=== PATIENT | female | born 1960 | race Caucasian/White ===

== ENCOUNTER 2020-07-27 12:27 | Emergency (ER) | payer MEDICAID ==
[~2020-07-27] VITALS: Ht 160 cm; Wt 51.0 kg
[2020-07-27 12:43] VITALS: BP 133/87
[2020-07-27] MEDS ORDERED: LORazepam 1 MG tablet PO ONE (13:10)
[2020-07-27] MEDS ORDERED: LORA-269 PO (13:24)
== END 2020-07-27 13:42 | disposition home or self-care (01) ==
LOC: ER 12:27
DX: F41.9 Anxiety disorder, unspecified (principal); Z60.2 Problems related to living alone; Z88.5 Allergy status to narcotic agent; Z79.899 Other long term (current) drug therapy; Y08.89XA Assault by other specified means, initial encounter; Y93.89 Activity, other specified; Y92.89 Other specified places as the place of occurrence of the external cause; Y99.8 Other external cause status
CPT/HCPCS: 99283

== ENCOUNTER 2020-08-19 19:20 | Inpatient (IN) | payer MEDICAID ==
[~2020-08-19] VITALS: Ht 162.6 cm; Wt 50.0 kg
[~2020-08-19 19:20] MED LIST: LORA-269 PO
[2020-08-19 20:26] LABS: BASOPHILS # (AUTO) 0.1 X10'3 (0-0.2); BASOPHILS % (AUTO) 0.8 % (0-1); EOSINOPHILS % (AUTO) 0.4 % (0-6); HEMATOCRIT 36.8 % (35.0-45.0); HEMOGLOBIN 12.9 g/dl (12.0-16.0); LYMPHOCYTES % (AUTO) 14.1 % (21-51); MEAN CORPUSCULAR HEMOGLOBIN 34.1 PG (27.0-31.0); MEAN CORPUSCULAR HGB CONC 35.1 g/dL (33.0-36.5); MEAN CORPUSCULAR VOLUME 97.2 FL (78-98); MEAN PLATELET VOLUME 6.6 FL (7.4-10.4); MONOCYTES # (AUTO) 0.8 X10'3 (0-0.9); NEUTROPHILS # (AUTO) 5.1 X10'3 (1.8-7.7); NEUTROPHILS % (AUTO) 73.7 % (42-75); PLATELET COUNT 345 X10'3 (140-440); RED BLOOD COUNT 3.79 X10'6 (4.20-5.60); RED CELL DISTRIBUTION WIDTH 14.3 % (11.5-14.5); WHITE BLOOD COUNT 6.9 X10'3 (4.5-11.0)
[2020-08-19 20:47] LABS: ALANINE AMINOTRANSFERASE 81 U/L (12-78); ALBUMIN 4.1 G/DL (3.4-5.0); ALBUMIN/GLOBULIN RATIO 1.4 (1.1-1.5); ALKALINE PHOSPHATASE 64 IU/L (46-116); ANION GAP 10 (8-16); ASPARTATE AMINO TRANSFERASE 76 U/L (10-37); BILIRUBIN,TOTAL 0.6 MG/DL (0.1-1.0); BLOOD UREA NITROGEN 5 MG/DL (7-18); BUN/CREATININE RATIO 7.5 (6.6-38.0); CALCIUM 8.8 MG/DL (8.5-10.1); CHLORIDE 83 MMOL/L (99-107); CREATININE 0.67 MG/DL (0.40-0.90); ETHANOL < 0.010 GM/DL (0.0-0.010); GLUCOSE 85 MG/DL (70-104); TOTAL CARBON DIOXIDE 26.4 MMOL/L (24-32); eGFR 89 ML/MIN
[2020-08-19 20:50] LABS: POTASSIUM 2.9 MMOL/L (3.5-5.1); SODIUM 119 MMOL/L (135-145)
[2020-08-19 21:03] LABS: CLARITY,URINE CLEAR (Clear); COLOR,URINE YELLOW (Yellow); GLUCOSE, URINE NEGATIVE (Neg); KETONES,URINE NEGATIVE (Neg); LEUKOCYTE ESTERASE ,URINE NEGATIVE (Neg); NITRITES, URINE NEGATIVE (Neg); OCCULT BLOOD,URINE NEGATIVE (Neg); PROTEIN,URINE NEGATIVE (Neg); UROBILINOGEN,URINE 0.2 E.U/dL (0.2-1.0)
[2020-08-19 21:13] LABS: UA COLLECTION TYPE NON-SPECIFIED
[2020-08-19 21:18] LABS: URINE AMPHETAMINE SCREEN NEGATIVE (Neg); URINE BARBITUATE SCREEN NEGATIVE (Neg); URINE BENZODIAZEPINES SCREEN NEGATIVE (Neg); URINE CANNABINOID SCREEN NEGATIVE (Neg); URINE COCAINE SCREEN NEGATIVE (Neg); URINE METHADONE SCREEN NEGATIVE (Neg); URINE OPIATE SCREEN NEGATIVE (Neg); URINE PHENCYCLIDINE SCREEN NEGATIVE (Neg)
[2020-08-19] MEDS ORDERED: LORazepam 1 MG tablet PO ONE (21:25)
[2020-08-19] MEDS ORDERED: haloperidol 5mg tablet PO ONE (21:25)
[2020-08-19] MEDS ORDERED: diphenhydrAMINE 25mg capsule PO ONE (21:25)
[2020-08-19] MEDS ORDERED: magnesium 4gm in 100ml NS 100 ML IV PRN (21:40)
[2020-08-19] MEDS ORDERED: magnesium 2GM in 50ml NS 50 ML IV PRN (21:40)
[2020-08-19] MEDS ORDERED: potassium CL 10mEq/100ml bag 100 ML IV PRN ×2 (21:40)
[2020-08-19] MEDS ORDERED: potassium Cl 20 mEq SR tablet PO PRN (21:40)
[2020-08-19] MEDS ORDERED: magnesium Cl slow-release 64mg tablet PO PRN (21:40)
[2020-08-19] MEDS ORDERED: ondansetron/PF 4mg/2ml inj IV PRN (21:40)
[2020-08-19] MEDS ORDERED: potassium Cl 20 mEq SR tablet PO STA (22:02)
[2020-08-19] MEDS ORDERED: normal saline 1000ml 1,000 ML IV ONE (22:05)
[2020-08-19] MEDS: normal saline 1000ml 1,000 ML IV SCH (23:45)
--- NOTE | 2020-08-19 23:52 | NUR ---
tried to complete pt med req. Pt was unable to verify any home meds pt states she gets her meds at [facility]. [facility] has no external med car pick up driver for pt. is aware
[2020-08-20] VITALS (8 sets, daily range): BP systolic 89–153; BP diastolic 51–93
--- NOTE | 2020-08-20 04:09 | NUR ---
received report from Leidy CANTRELL [facility], had opportunity to ask questions, awaiting arrival to floor.
--- NOTE | 2020-08-20 04:15 | NUR ---
pt arrived to floor with all belongings, pt oriented to floor, tele attached, VS stable, staff in room.
[2020-08-20] MEDS: normal saline 1000ml 1,000 ML IV SCH ×2 (05:05→17:40)
[2020-08-20 06:08] LABS: BASOPHILS % (AUTO) 0.4 % (0-1); EOSINOPHILS # (AUTO) 0.1 X10'3 (0-0.9); EOSINOPHILS % (AUTO) 1.3 % (0-6); HEMATOCRIT 35.5 % (35.0-45.0); HEMOGLOBIN 12.1 g/dl (12.0-16.0); LYMPHOCYTES # (AUTO) 1.1 X10'3 (1.1-4.8); LYMPHOCYTES % (AUTO) 17.9 % (21-51); MEAN CORPUSCULAR HEMOGLOBIN 33.5 PG (27.0-31.0); MEAN CORPUSCULAR HGB CONC 34.2 g/dL (33.0-36.5); MEAN CORPUSCULAR VOLUME 97.9 FL (78-98); MEAN PLATELET VOLUME 7.1 FL (7.4-10.4); MONOCYTES # (AUTO) 0.7 X10'3 (0-0.9); MONOCYTES % (AUTO) 11.6 % (2-12); NEUTROPHILS # (AUTO) 4.1 X10'3 (1.8-7.7); NEUTROPHILS % (AUTO) 68.8 % (42-75); PLATELET COUNT 338 X10'3 (140-440); RED BLOOD COUNT 3.63 X10'6 (4.20-5.60); RED CELL DISTRIBUTION WIDTH 14.5 % (11.5-14.5)
[2020-08-20 06:21] LABS: ALBUMIN 3.1 G/DL (3.4-5.0); ANION GAP 8 (8-16); BLOOD UREA NITROGEN 4 MG/DL (7-18); BUN/CREATININE RATIO 6.7 (6.6-38.0); CALCIUM 8.5 MG/DL (8.5-10.1); CHLORIDE 100 MMOL/L (99-107); GLUCOSE 71 MG/DL (70-104); MAGNESIUM 1.9 MG/DL (1.5-2.4); POTASSIUM 3.3 MMOL/L (3.5-5.1); SODIUM 134 MMOL/L (135-145); TOTAL CARBON DIOXIDE 25.8 MMOL/L (24-32); eGFR > 90 ML/MIN
--- NOTE | 2020-08-20 06:27 | NUR ---
Problems reprioritized. Patient report given, questions answered & plan of care reviewed with Colette CANTRELL.
[2020-08-20] MEDS: potassium Cl 20 mEq SR tablet PO PRN ×3 (08:40→19:36)
[2020-08-20] MEDS: K and/or MAG REPLACEMENT MC SCH ×2 (08:41→19:34)
--- NOTE | 2020-08-20 15:45 | NUR ---
PAGER ID: [phone] MESSAGE: [phone] Jordin Grossman C/o difficulty breathing. Episodic dry spastic cough observed. Satting well on room air. States she takes singulair and Sudafed. Pls. advise. Colette [phone]
[2020-08-20] MEDS: LORazepam 1 MG tablet PO PRN (16:06)
--- NOTE | 2020-08-20 18:15 | NUR ---
Patient in room PCU 3012. I have received report from Colette CANTRELL and had the opportunity to ask questions and assume patient care.
--- NOTE | 2020-08-20 18:41 | NUR ---
Problems reprioritized. Patient report given, questions answered & plan of care reviewed with Pennie CANTRELL.
[2020-08-21] MEDS: LORazepam 1 MG tablet PO PRN ×3 (00:40→16:51)
[2020-08-21] MEDS: normal saline 1000ml 1,000 ML IV SCH ×2 (00:43→13:40)
[2020-08-21 02:00] VITALS: BP 153/84
[2020-08-21 05:16] LABS: ALBUMIN 3.1 G/DL (3.4-5.0); ANION GAP 9 (8-16); BLOOD UREA NITROGEN 4 MG/DL (7-18); CALCIUM 8.4 MG/DL (8.5-10.1); CHLORIDE 103 MMOL/L (99-107); GLUCOSE 90 MG/DL (70-104); MAGNESIUM 1.8 MG/DL (1.5-2.4); POTASSIUM 3.2 MMOL/L (3.5-5.1); SODIUM 135 MMOL/L (135-145); TOTAL CARBON DIOXIDE 22.7 MMOL/L (24-32); eGFR > 90 ML/MIN
[2020-08-21 05:21] LABS: BASOPHILS % (AUTO) 0.9 % (0-1); EOSINOPHILS # (AUTO) 0.1 X10'3 (0-0.9); EOSINOPHILS % (AUTO) 1.9 % (0-6); HEMATOCRIT 33.7 % (35.0-45.0); HEMOGLOBIN 11.4 g/dl (12.0-16.0); LYMPHOCYTES # (AUTO) 1.2 X10'3 (1.1-4.8); LYMPHOCYTES % (AUTO) 25.4 % (21-51); MEAN CORPUSCULAR HEMOGLOBIN 33.9 PG (27.0-31.0); MEAN CORPUSCULAR VOLUME 99.8 FL (78-98); MEAN PLATELET VOLUME 7.2 FL (7.4-10.4); MONOCYTES # (AUTO) 0.6 X10'3 (0-0.9); MONOCYTES % (AUTO) 12.6 % (2-12); NEUTROPHILS # (AUTO) 2.8 X10'3 (1.8-7.7); NEUTROPHILS % (AUTO) 59.2 % (42-75); PLATELET COUNT 298 X10'3 (140-440); RED BLOOD COUNT 3.38 X10'6 (4.20-5.60); RED CELL DISTRIBUTION WIDTH 14.5 % (11.5-14.5); WHITE BLOOD COUNT 4.7 X10'3 (4.5-11.0)
--- NOTE | 2020-08-21 06:10 | NUR ---
Patient in room PCU 3012. I have received report from Pennie CANTRELL and had the opportunity to ask questions and assume patient care.
--- NOTE | 2020-08-21 06:36 | NUR ---
Problems reprioritized. Patient report given, questions answered & plan of care reviewed with Sarah CANTRELL.
--- NOTE | 2020-08-21 06:39 | NUR ---
Problems reprioritized. Patient report given, questions answered & plan of care reviewed with Sarah CANTRELL.
[2020-08-21 07:15] VITALS: BP 127/70
[2020-08-21] MEDS: K and/or MAG REPLACEMENT MC SCH ×2 (08:47→20:56)
[2020-08-21] MEDS: potassium Cl 20 mEq SR tablet PO PRN ×3 (08:50→20:53)
[2020-08-21 11:00] VITALS: BP 133/81
[2020-08-21] MEDS ORDERED: iohexol 350MG/ML 100ml bottle IV ONE (11:58)
[2020-08-21 15:00] VITALS: BP 130/83
--- NOTE | 2020-08-21 17:28 | NUR ---
patient up and about with sitter seen by DR andujar CTA ordered and done see report. patient demonstrated flights of thought manyn times when asked questions. continues on 1798.
[2020-08-21 18:00] VITALS: BP 136/78
--- NOTE | 2020-08-21 18:00 | NUR ---
Patient in room U 3012. I have received report from ÓSCAR Smith and had the opportunity to ask questions and assume patient care. Patient resting in bed. No signs of distress. Safety measures in place, bed in low and locked position. Call light and personal items within reach. Will continue to monitor throughout shift.
--- NOTE | 2020-08-21 18:31 | NUR ---
Problems reprioritized. Patient report given, questions answered & plan of care reviewed with Kayla CANTRELL.
--- NOTE | 2020-08-21 18:46 | NUR ---
Patient in room PCU 3012. I have received report from Sarah CANTRELL and had the opportunity to ask questions and assume patient care with Cristiano CANTRELL.
[2020-08-21] MEDS: acetaminophen 325mg tablet PO PRN (20:53)
[2020-08-21 22:00] VITALS: BP 136/87
[2020-08-22] MEDS: normal saline 1000ml 1,000 ML IV SCH ×2 (01:28→11:24)
[2020-08-22] MEDS: LORazepam 1 MG tablet PO PRN (01:54)
[2020-08-22 02:00] VITALS: BP 139/75
[2020-08-22 05:20] LABS: BASOPHILS % (AUTO) 0.7 % (0-1); EOSINOPHILS # (AUTO) 0.1 X10'3 (0-0.9); EOSINOPHILS % (AUTO) 1.9 % (0-6); HEMATOCRIT 33.4 % (35.0-45.0); HEMOGLOBIN 11.2 g/dl (12.0-16.0); LYMPHOCYTES # (AUTO) 1.1 X10'3 (1.1-4.8); LYMPHOCYTES % (AUTO) 25.5 % (21-51); MEAN CORPUSCULAR HEMOGLOBIN 33.4 PG (27.0-31.0); MEAN CORPUSCULAR HGB CONC 33.6 g/dL (33.0-36.5); MEAN CORPUSCULAR VOLUME 99.5 FL (78-98); MEAN PLATELET VOLUME 7.3 FL (7.4-10.4); MONOCYTES # (AUTO) 0.5 X10'3 (0-0.9); MONOCYTES % (AUTO) 12.3 % (2-12); NEUTROPHILS # (AUTO) 2.7 X10'3 (1.8-7.7); NEUTROPHILS % (AUTO) 59.6 % (42-75); PLATELET COUNT 304 X10'3 (140-440); RED BLOOD COUNT 3.35 X10'6 (4.20-5.60); RED CELL DISTRIBUTION WIDTH 14.5 % (11.5-14.5); WHITE BLOOD COUNT 4.5 X10'3 (4.5-11.0)
[2020-08-22 05:53] LABS: ANION GAP 9 (8-16); BLOOD UREA NITROGEN 3 MG/DL (7-18); BUN/CREATININE RATIO 5.5 (6.6-38.0); CALCIUM 7.9 MG/DL (8.5-10.1); CHLORIDE 102 MMOL/L (99-107); CREATININE 0.55 MG/DL (0.40-0.90); GLUCOSE 112 MG/DL (70-104); MAGNESIUM 1.7 MG/DL (1.5-2.4); SODIUM 134 MMOL/L (135-145); TOTAL CARBON DIOXIDE 23.1 MMOL/L (24-32); eGFR > 90 ML/MIN
[2020-08-22 06:00] VITALS: BP 131/80
--- NOTE | 2020-08-22 06:06 | NUR ---
[place] documentation: I have reviewed and agree with all interventions, assessments performed and documented by Cristiano CANTRELL.[place] Medication Administration: For this medication-pass time frame, all medication were reviewed, dispensed, administered and documented per hospital policy by Cristiano CANTRELL with Kayla CANTRELL.
--- NOTE | 2020-08-22 06:29 | NUR ---
Problems reprioritized. Patient report given, questions answered & plan of care reviewed with Sheila RN.
[2020-08-22] MEDS: K and/or MAG REPLACEMENT MC SCH ×2 (08:00→20:00)
[2020-08-22] MEDS ORDERED: benzocaine/menthol oral lozeng 1 EACH BOX MM PRN (10:55)
[2020-08-22 11:00] VITALS: BP 92/68
[2020-08-22] MEDS: olanzapine 10mg tablet PO SCH (11:23)
[2020-08-22] MEDS: montelukast 10mg tablet PO SCH (11:23)
[2020-08-22 15:00] VITALS: BP 159/92
--- NOTE | 2020-08-22 16:30 | NUR ---
Notified Dr. Kurtz that per [facility], pt needs to be on a 5150 hold for "danger to others."
[2020-08-22] MEDS ORDERED: thiamine 100mg/ml 2ml inj. IV ONE (16:55)
[2020-08-22] MEDS: thiamine 100mg tablet PO SCH (17:33)
[2020-08-22 18:00] VITALS: BP 140/77
--- NOTE | 2020-08-22 18:32 | NUR ---
Problems reprioritized. Patient report given, questions answered & plan of care reviewed with ÓSCAR Rhodes.
[2020-08-22] MEDS ORDERED: traZODone 50mg tablet PO SCH (20:00)
[2020-08-22] MEDS: acetaminophen 325mg tablet PO PRN (21:11)
[2020-08-22 22:00] VITALS: BP 137/77
--- NOTE | 2020-08-22 22:05 | NUR ---
Spoke with Gissell [place], gave nurse to nurse update on patient. Will continue to monitor.
[2020-08-23] MEDS: acetaminophen 325mg tablet PO PRN ×2 (03:30→15:45)
[2020-08-23 06:29] LABS: BASOPHILS # (AUTO) 0.1 X10'3 (0-0.2); EOSINOPHILS # (AUTO) 0.1 X10'3 (0-0.9); EOSINOPHILS % (AUTO) 1.3 % (0-6); HEMATOCRIT 38.2 % (35.0-45.0); HEMOGLOBIN 12.9 g/dl (12.0-16.0); LYMPHOCYTES # (AUTO) 1.4 X10'3 (1.1-4.8); LYMPHOCYTES % (AUTO) 23.7 % (21-51); MEAN CORPUSCULAR HEMOGLOBIN 33.8 PG (27.0-31.0); MEAN CORPUSCULAR HGB CONC 33.7 g/dL (33.0-36.5); MEAN CORPUSCULAR VOLUME 100.2 FL (78-98); MEAN PLATELET VOLUME 7.4 FL (7.4-10.4); MONOCYTES # (AUTO) 0.7 X10'3 (0-0.9); MONOCYTES % (AUTO) 12.6 % (2-12); NEUTROPHILS # (AUTO) 3.6 X10'3 (1.8-7.7); NEUTROPHILS % (AUTO) 61.4 % (42-75); PLATELET COUNT 322 X10'3 (140-440); RED BLOOD COUNT 3.81 X10'6 (4.20-5.60); RED CELL DISTRIBUTION WIDTH 14.4 % (11.5-14.5); WHITE BLOOD COUNT 5.8 X10'3 (4.5-11.0)
[2020-08-23 06:30] VITALS: BP 140/84
[2020-08-23 06:41] LABS: % IRON SATURATION 16 % (11-46); IRON 40 UG/DL (49-151); TOTAL IRON BINDING CAPACITY 249 UG/DL (259-388)
--- NOTE | 2020-08-23 06:53 | NUR ---
Patient in room PCU 3012. I have received report from Carmelo CANTRELL and had the opportunity to ask questions and assume patient care.
[2020-08-23 06:56] LABS: ALBUMIN 3.5 G/DL (3.4-5.0); ANION GAP 12 (8-16); BLOOD UREA NITROGEN 3 MG/DL (7-18); BUN/CREATININE RATIO 5.2 (6.6-38.0); CALCIUM 8.4 MG/DL (8.5-10.1); CHLORIDE 105 MMOL/L (99-107); CREATININE 0.58 MG/DL (0.40-0.90); GLUCOSE 93 MG/DL (70-104); MAGNESIUM 1.8 MG/DL (1.5-2.4); POTASSIUM 3.7 MMOL/L (3.5-5.1); SODIUM 138 MMOL/L (135-145); TOTAL CARBON DIOXIDE 21.3 MMOL/L (24-32); eGFR > 90 ML/MIN
[2020-08-23] MEDS: K and/or MAG REPLACEMENT MC SCH ×2 (08:00→20:00)
[2020-08-23] MEDS: olanzapine 10mg tablet PO SCH ×2 (09:23→20:01)
[2020-08-23] MEDS: thiamine 100mg tablet PO SCH ×2 (09:24→20:00)
[2020-08-23] MEDS: folic acid 1mg tablet PO SCH (09:24)
[2020-08-23] MEDS: multivitamins, therapeutics tablet PO SCH (09:24)
[2020-08-23] MEDS: montelukast 10mg tablet PO SCH (09:24)
--- NOTE | 2020-08-23 09:35 | NUR ---
The [facility] student RAJWINDER reported that patient took all pills but thrown 1 pill into the trash bin
--- NOTE | 2020-08-23 09:41 | NUR ---
Patient got upset about going to [facility], requesting to talk to [facility] or [facility]. harvest worker field crop paged regarding this request
--- NOTE | 2020-08-23 10:04 | NUR ---
Spoke to EMILY Priest about patient dont want to be discharge today to [facility] and that she is requesting to speak to [facility]. I told Zayda and charge nurse Ava that the patient dont want to go to [facility] today and requesting another day. EMILY Priest said she will try to call [facility] and have the staff talk to the patient over the phone. Jossy, our Holistic Specialist had told me that she will try to stop by when she get a chance to see the patient. Lilian from [facility] clinician in the chart
[2020-08-23] MEDS ORDERED: ALBU8HFA PO (10:05)
[2020-08-23] MEDS ORDERED: LORA-269 PO (10:05)
[2020-08-23] MEDS ORDERED: TRAZ-251 PO (10:05)
[2020-08-23] MEDS ORDERED: CELE-193 PO (10:05)
[2020-08-23] MEDS ORDERED: AMLO1CAP23 PO (10:05)
--- NOTE | 2020-08-23 10:09 | NUR ---
Jossy, Rehabilitation Tech came by, will talk to the patient
[2020-08-23 11:00] VITALS: BP 129/79
[2020-08-23] MEDS ORDERED: temazepam 15mg capsule PO PRN (12:40)
[2020-08-23] MEDS ORDERED: LORazepam 1 MG tablet PO PRN (12:45)
[2020-08-23 15:00] VITALS: BP 126/68
[2020-08-23 18:00] VITALS: BP 136/79
--- NOTE | 2020-08-23 18:48 | NUR ---
Patient in room PCU 3012. I have received report from ÓSCAR Parker and had the opportunity to ask questions and assume patient care.
--- NOTE | 2020-08-23 18:57 | NUR ---
Problems reprioritized. Patient report given, questions answered & plan of care reviewed with Leidy Juarez RN.
[2020-08-23 22:00] VITALS: BP 146/89
--- NOTE | 2020-08-23 22:53 | NUR ---
Problems reprioritized. Patient report given, questions answered & plan of care reviewed with ÓSCAR Ferro.
--- NOTE | 2020-08-23 23:00 | NUR ---
Patient in room PCU 3012. I have received report from Leidy CANTRELL and had the opportunity to ask questions and assume patient care.
--- NOTE | 2020-08-23 23:55 | NUR ---
I agree with the charting and assessments done by Leidy CANTRELL.
[2020-08-24 02:00] VITALS: BP 132/87
--- NOTE | 2020-08-24 06:32 | NUR ---
Problems reprioritized. Patient report given, questions answered & plan of care reviewed with Alfredo CANTRELL.
--- NOTE | 2020-08-24 06:39 | NUR ---
Patient in room PCU 3010. I have received report from Antonia CANTRELL and had the opportunity to ask questions and assume patient care.
[2020-08-24 07:04] VITALS: BP 142/88
[2020-08-24] MEDS: K and/or MAG REPLACEMENT MC SCH ×3 (08:00→19:36)
[2020-08-24] MEDS: multivitamins, therapeutics tablet PO SCH (08:21)
[2020-08-24] MEDS: folic acid 1mg tablet PO SCH (08:21)
[2020-08-24] MEDS: olanzapine 10mg tablet PO SCH ×2 (08:22→19:40)
[2020-08-24] MEDS: thiamine 100mg tablet PO SCH ×2 (08:22→19:39)
[2020-08-24] MEDS: montelukast 10mg tablet PO SCH (08:22)
[2020-08-24 08:30] LABS: BASOPHILS # (AUTO) 0.1 X10'3 (0-0.2); EOSINOPHILS # (AUTO) 0.1 X10'3 (0-0.9); EOSINOPHILS % (AUTO) 1.3 % (0-6); HEMATOCRIT 41.9 % (35.0-45.0); HEMOGLOBIN 14.2 g/dl (12.0-16.0); LYMPHOCYTES # (AUTO) 1.3 X10'3 (1.1-4.8); LYMPHOCYTES % (AUTO) 19.9 % (21-51); MEAN CORPUSCULAR HEMOGLOBIN 33.2 PG (27.0-31.0); MEAN CORPUSCULAR HGB CONC 33.8 g/dL (33.0-36.5); MEAN CORPUSCULAR VOLUME 98.3 FL (78-98); MEAN PLATELET VOLUME 7.2 FL (7.4-10.4); MONOCYTES # (AUTO) 0.8 X10'3 (0-0.9); MONOCYTES % (AUTO) 12.3 % (2-12); NEUTROPHILS # (AUTO) 4.3 X10'3 (1.8-7.7); NEUTROPHILS % (AUTO) 65.5 % (42-75); PLATELET COUNT 380 X10'3 (140-440); RED BLOOD COUNT 4.26 X10'6 (4.20-5.60); RED CELL DISTRIBUTION WIDTH 14.2 % (11.5-14.5); WHITE BLOOD COUNT 6.6 X10'3 (4.5-11.0)
[2020-08-24 08:33] LABS: ALBUMIN 3.7 G/DL (3.4-5.0); ANION GAP 8 (8-16); BLOOD UREA NITROGEN 4 MG/DL (7-18); BUN/CREATININE RATIO 6.8 (6.6-38.0); CALCIUM 9.1 MG/DL (8.5-10.1); CHLORIDE 96 MMOL/L (99-107); CREATININE 0.59 MG/DL (0.40-0.90); GLUCOSE 147 MG/DL (70-104); MAGNESIUM 1.7 MG/DL (1.5-2.4); POTASSIUM 3.2 MMOL/L (3.5-5.1); SODIUM 130 MMOL/L (135-145); TOTAL CARBON DIOXIDE 26.5 MMOL/L (24-32); eGFR > 90 ML/MIN
[2020-08-24] MEDS: amLODIPine 5mg tablet PO SCH (10:18)
[2020-08-24] MEDS: lisinopril 20mg tablet PO SCH (10:20)
[2020-08-24 11:00] VITALS: BP 133/88
[2020-08-24] MEDS ORDERED: magnesium Cl slow-release 64mg tablet PO PRN (12:35)
[2020-08-24] MEDS ORDERED: magnesium 4gm in 100ml NS 100 ML IV PRN (12:35)
[2020-08-24] MEDS ORDERED: potassium Cl 20 mEq SR tablet PO PRN (12:35)
[2020-08-24] MEDS ORDERED: potassium CL 10mEq/100ml bag 100 ML IV PRN (12:35)
[2020-08-24] MEDS: potassium Cl 20 mEq SR tablet PO PRN ×2 (12:57→19:40)
[2020-08-24] MEDS: LORazepam 1 MG tablet PO SCH ×2 (12:58→19:39)
--- NOTE | 2020-08-24 13:41 | NUR ---
Paged Jig Worker "[phone] Cathie Grossman patient needs you to come to bedside. She is convinced that she can leave and wants to speak with you, directly, EVER"
--- NOTE | 2020-08-24 13:41 | NUR ---
Patient appears to be in a very manic state today. She states that she is of sound mind and that we cannot hold her here. She states that she can leave and is being held against her will. The patient spoke with Nursing Forest Science Professor, Jewell, regarding this manner, which was witnessed by Messi LUIS and Lefty Raymond, primary RN. The patient agreed to return to the bedside if she can speak with social human services assistants.
[2020-08-24 15:00] VITALS: BP 143/87
--- NOTE | 2020-08-24 15:44 | NUR ---
PO intake 50-75% of regular diet. Last documented BM 08/20; possibly constipated. Recommend bowel care, notified MD. Recommend: 1. continue regular diet 2. routine bowel care 3. wt per rx Addendum: 08/24/20 at [address] Amended: Links added.
[2020-08-24 15:45] LABS: URINE AMPHETAMINE SCREEN NEGATIVE (Neg); URINE BARBITUATE SCREEN NEGATIVE (Neg); URINE BENZODIAZEPINES SCREEN NEGATIVE (Neg); URINE CANNABINOID SCREEN NEGATIVE (Neg); URINE COCAINE SCREEN NEGATIVE (Neg); URINE METHADONE SCREEN NEGATIVE (Neg); URINE OPIATE SCREEN NEGATIVE (Neg); URINE PHENCYCLIDINE SCREEN NEGATIVE (Neg)
[2020-08-24] MEDS ORDERED: magnesium hydroxide 30ml (MOM) UD suspension PO PRN (16:20)
[2020-08-24] MEDS ORDERED: magnesium hydroxide 30ml (MOM) UD suspension PO ONE (16:20)
[2020-08-24 18:00] VITALS: BP 131/79
--- NOTE | 2020-08-24 18:12 | NUR ---
Problems reprioritized. Patient report given, questions answered & plan of care reviewed with Jina CANTRELL.
--- NOTE | 2020-08-24 19:00 | NUR ---
Pt was up pacing in halls demanding that she switches rooms. pt was very agitated and talked to the rn relief charge. pt was switched to a new room. pt stated she was very happy in her new room. will continue to monitor
[2020-08-24 22:00] VITALS: BP 92/63
--- NOTE | 2020-08-24 22:47 | NUR ---
Patient in room PCU 3026. I have received report from Lefty CANTRELL and had the opportunity to ask questions and assume patient care.
[2020-08-25 02:30] VITALS: BP 97/58
[2020-08-25 06:00] VITALS: BP 90/63
--- NOTE | 2020-08-25 06:23 | NUR ---
Patient in room PCU 3026. I have received report from ÓSCAR Muro and had the opportunity to ask questions and assume patient care.
[2020-08-25 06:29] LABS: MAGNESIUM 2.2 MG/DL (1.5-2.4)
[2020-08-25 06:30] LABS: POTASSIUM 4.8 MMOL/L (3.5-5.1)
--- NOTE | 2020-08-25 06:31 | NUR ---
Problems reprioritized. Patient report given, questions answered & plan of care reviewed with Danica CANTRELL.
[2020-08-25] MEDS: K and/or MAG REPLACEMENT MC SCH ×4 (07:46→20:00)
[2020-08-25] MEDS: thiamine 100mg tablet PO SCH ×2 (07:56→20:30)
[2020-08-25] MEDS: multivitamins, therapeutics tablet PO SCH (07:56)
[2020-08-25] MEDS: olanzapine 10mg tablet PO SCH ×2 (07:57→20:30)
[2020-08-25] MEDS: montelukast 10mg tablet PO SCH (07:57)
[2020-08-25] MEDS: LORazepam 1 MG tablet PO SCH ×2 (07:57→20:30)
[2020-08-25] MEDS: docusate sod 100mg capsule PO SCH (07:57)
[2020-08-25] MEDS: potassium Cl 20 mEq SR tablet PO PRN (07:58)
[2020-08-25] MEDS: folic acid 1mg tablet PO SCH (08:00)
[2020-08-25] MEDS: lisinopril 20mg tablet PO SCH (08:00)
[2020-08-25] MEDS: amLODIPine 5mg tablet PO SCH (08:00)
--- NOTE | 2020-08-25 11:09 | NUR ---
PAGER ID: [phone] MESSAGE: [phone]: Cathie Hollis - Pt needs [phone] renewed, please and thanks! -chava [phone]
[2020-08-25] MEDS ORDERED: THIA50TA10 PO (14:15)
[2020-08-25] MEDS ORDERED: FOLI0.4T2 PO (14:15)
[2020-08-25] MEDS ORDERED: MULT-25 PO (14:15)
[2020-08-25] MEDS ORDERED: MONT10TA26 PO (14:15)
[2020-08-25] MEDS ORDERED: OLAN10TA19 PO (14:15)
[2020-08-25 15:00] VITALS: BP 93/63
[2020-08-25 18:00] VITALS: BP 102/66
--- NOTE | 2020-08-25 18:39 | NUR ---
Problems reprioritized. Patient report given, questions answered & plan of care reviewed with ÓSCAR Casper.
--- NOTE | 2020-08-25 18:40 | NUR ---
Patient in room PCU 3026. I have received report from Danica CANTRELL and had the opportunity to ask questions and assume patient care.
[2020-08-25 22:00] VITALS: BP 121/67
--- NOTE | 2020-08-25 22:00 | NUR ---
Patient believes she is here because her "husbands family is in control of the hospital."
[2020-08-26] MEDS ORDERED: acetaminophen 325mg tablet PO PRN (00:35)
--- NOTE | 2020-08-26 04:55 | NUR ---
Patient refused to have her vitals done for the 0200 check. Patient does not appear to be in distress she would like to sleep.
[2020-08-26 06:30] VITALS: BP 121/75
--- NOTE | 2020-08-26 06:30 | NUR ---
Patient in room PCU 3026. I have received report from ÓSCAR Casper and had the opportunity to ask questions and assume patient care.
--- NOTE | 2020-08-26 06:44 | NUR ---
Problems reprioritized. Patient report given, questions answered & plan of care reviewed with Mariana RN.
[2020-08-26] MEDS: K and/or MAG REPLACEMENT MC SCH (07:23)
[2020-08-26] MEDS: multivitamins, therapeutics tablet PO SCH (10:23)
[2020-08-26] MEDS: olanzapine 10mg tablet PO SCH (10:23)
[2020-08-26] MEDS: amLODIPine 5mg tablet PO SCH (10:24)
[2020-08-26] MEDS: LORazepam 1 MG tablet PO SCH (10:24)
[2020-08-26] MEDS: thiamine 100mg tablet PO SCH (10:24)
[2020-08-26] MEDS: docusate sod 100mg capsule PO SCH (10:24)
[2020-08-26] MEDS: montelukast 10mg tablet PO SCH (10:24)
[2020-08-26] MEDS: folic acid 1mg tablet PO SCH (10:25)
[2020-08-26] MEDS: lisinopril 20mg tablet PO SCH (10:25)
[2020-08-26 11:00] VITALS: BP 137/79
--- NOTE | 2020-08-26 13:00 | NUR ---
Report given to [facility] RN, Syeda
--- NOTE | 2020-08-26 13:35 | NUR ---
IV DC'd, tip intact. All belongings sent w/pt. Pt DC'd to [facility] via ambulated w/[facility] security staff & [facility] staff to [facility].
[2020-08-26] MEDS ORDERED: LORA-269 PO (16:45)
[2020-08-26] MEDS ORDERED: LISI-600 PO (16:45)
[2020-08-26] MEDS ORDERED: OLAN10TA3 PO (16:45)
== END 2020-08-26 13:33 | DRG 426 ==
LOC: ER 19:20 → ED HOLD 21:40 → PCU 3S 08-20 04:18
PROVIDERS: ADMIT Internal Medicine; ATTEND Family Medicine
DX: E87.1 Hypo-osmolality and hyponatremia (principal); E87.6 Hypokalemia; F41.9 Anxiety disorder, unspecified; F31.9 Bipolar disorder, unspecified; D64.9 Anemia, unspecified; G93.41 Metabolic encephalopathy; Z88.8 Allergy status to other drugs, medicaments and biological substances; Z88.5 Allergy status to narcotic agent
CPT/HCPCS: 36415; 70496; 71045; 80048; 80053; 80305; 80320; 81003; 82607; 83540; 83550; 83735; 84132; 84443; 85025; 87081; 96365; 99285; G0378; J3480; J7030; Q0163; Q9967

== ENCOUNTER 2020-12-10 00:17 | Emergency (ER) | payer MEDICAID ==
[~2020-12-10] VITALS: Ht 162.6 cm; Wt 50.0 kg
[~2020-12-10 00:17] MED LIST changes: +ASPI-1071 PO; +CELE100C98 PO; +DIVA500T9 PO; +FOLI0.4T14 PO; +LIDO700A47 TP; -LORA-269 PO; +MONT10TA97 PO; +MULT-25 PO; +NOR5T PO
[2020-12-10 00:30] VITALS: BP 133/73
--- NOTE | 2020-12-10 00:52 | NUR ---
called [facility] and will await a phone call back
--- NOTE | 2020-12-10 01:48 | NUR ---
[facility] called and they cannot provide her with any services.
[2020-12-10] MEDS ORDERED: KEN0.1O TP (01:53)
== END 2020-12-10 02:00 | disposition home or self-care (01) ==
LOC: ER 00:17
DX: Z59.0 Homelessness (principal); F41.9 Anxiety disorder, unspecified; Z60.9 Problem related to social environment, unspecified; Z88.6 Allergy status to analgesic agent; Z88.8 Allergy status to other drugs, medicaments and biological substances; Z79.899 Other long term (current) drug therapy
CPT/HCPCS: 99283

== ENCOUNTER 2021-02-14 15:41 | Emergency (ER) | payer MEDICAID ==
[~2021-02-14] VITALS: Ht 162.6 cm; Wt 54.5 kg
[~2021-02-14 15:41] MED LIST changes: +MONT10TA32 PO; -MONT10TA97 PO
[2021-02-14 15:50] VITALS: BP 108/66
--- NOTE | 2021-02-14 17:30 | NUR ---
PT HAS A [employer] PLANT OPERATOR AT BEDSIDE "FRIEND" FOLLOWED PT [place] TO HELP HER. PT'S FRIEND IS SOTERO.
[2021-02-14 17:47] LABS: BASOPHILS % (AUTO) 0.8 % (0-1); EOSINOPHILS # (AUTO) 0.1 X10'3 (0-0.9); EOSINOPHILS % (AUTO) 2.7 % (0-6); HEMATOCRIT 36.2 % (35.0-45.0); LYMPHOCYTES # (AUTO) 1.2 X10'3 (1.1-4.8); LYMPHOCYTES % (AUTO) 26.1 % (21-51); MEAN CORPUSCULAR HEMOGLOBIN 31.8 PG (27.0-31.0); MEAN CORPUSCULAR HGB CONC 33.3 g/dL (33.0-36.5); MEAN CORPUSCULAR VOLUME 95.6 FL (78-98); MEAN PLATELET VOLUME 7.1 FL (7.4-10.4); MONOCYTES # (AUTO) 0.4 X10'3 (0-0.9); MONOCYTES % (AUTO) 9.2 % (2-12); NEUTROPHILS # (AUTO) 2.9 X10'3 (1.8-7.7); NEUTROPHILS % (AUTO) 61.2 % (42-75); PLATELET COUNT 280 X10'3 (140-440); RED BLOOD COUNT 3.78 X10'6 (4.20-5.60); RED CELL DISTRIBUTION WIDTH 13.7 % (11.5-14.5); WHITE BLOOD COUNT 4.7 X10'3 (4.5-11.0)
[2021-02-14] MEDS ORDERED: acetaminophen 325mg tablet PO ONE (17:55)
[2021-02-14 17:57] LABS: ALANINE AMINOTRANSFERASE 43 U/L (12-78); ALBUMIN 3.6 G/DL (3.4-5.0); ALBUMIN/GLOBULIN RATIO 1.2 (1.1-1.5); ALKALINE PHOSPHATASE 102 IU/L (46-116); ANION GAP 14 (8-16); ASPARTATE AMINO TRANSFERASE 28 U/L (10-37); BILIRUBIN,TOTAL 0.2 MG/DL (0.1-1.0); BLOOD UREA NITROGEN 11 MG/DL (7-18); BUN/CREATININE RATIO 19.6 (6.6-38.0); CALCIUM 8.8 MG/DL (8.5-10.1); CHLORIDE 97 MMOL/L (99-107); CREATININE 0.56 MG/DL (0.40-0.90); GLUCOSE 86 MG/DL (70-104); POTASSIUM 3.8 MMOL/L (3.5-5.1); SODIUM 136 MMOL/L (135-145); TOTAL CARBON DIOXIDE 25.5 MMOL/L (24-32); TOTAL PROTEIN 6.7 G/DL (6.4-8.2); eGFR > 90 ML/MIN
== END 2021-02-14 18:25 | disposition home or self-care (01) ==
LOC: ER 15:42
DX: S09.90XA Unspecified injury of head, initial encounter (principal); R51.9 Headache, unspecified; G47.9 Sleep disorder, unspecified; F17.200 Nicotine dependence, unspecified, uncomplicated; I10 Essential (primary) hypertension; J45.909 Unspecified asthma, uncomplicated; F41.9 Anxiety disorder, unspecified; Z86.73 Personal history of transient ischemic attack (TIA), and cerebral infarction without residual deficits; Z98.890 Other specified postprocedural states; Z72.89 Other problems related to lifestyle; Z60.2 Problems related to living alone; Z88.5 Allergy status to narcotic agent; Z88.8 Allergy status to other drugs, medicaments and biological substances; Z79.82 Long term (current) use of aspirin; Z79.899 Other long term (current) drug therapy; X58.XXXA Exposure to other specified factors, initial encounter; Y93.89 Activity, other specified; Y92.89 Other specified places as the place of occurrence of the external cause; Y99.8 Other external cause status
CPT/HCPCS: 36415; 80053; 85025; 99283